=== PATIENT | female | born 1985 | race Caucasian/White ===

== ENCOUNTER 2016-10-07 06:46 | Day surgery (SDC) | payer OTHER ==
[~2016-10-07] VITALS: Ht 157.5 cm; Wt 67.8 kg
[2016-10-07 07:29] VITALS: Ht 157.5 cm; Wt 67.8 kg
[2016-10-07] MEDS ORDERED: LIDOCAINE 4% SOLUTION 50 ML BTL ONE (07:58)
[2016-10-07 08:11] VITALS: BP 107/61; PULSE 60; RESP 20
[2016-10-07] MEDS ORDERED: MIDAZOLAM 1 MG/ML 2 ML INJ ONE ×2 (08:25)
[2016-10-07] MEDS ORDERED: FENTAnyl 50 MCG/ML VIAL ONE (08:26)
[2016-10-07 08:40] VITALS: BP 95/55; PULSE 56; RESP 18
[2016-10-07 09:11] VITALS: BP 149/76; PULSE 50; RESP 18
--- NOTE | 2016-10-07 09:48 | GILP ---
DATE OF PROCEDURE: PROCEDURE: Esophagogastroduodenoscopy. PREOPERATIVE DIAGNOSIS: Patient presenting with a history of chronic heartburn, chronic dyspepsia, unresponsive to routine therapy, rule out peptic ulcer disease, gastroesophageal reflux disease. POSTOPERATIVE DIAGNOSES: 1. Mild reflux esophagitis, Chariton classification A. 2. Patchy gastritis of the stomach in a salt and pepper type of pattern. Biopsy was done to rule o ut Helicobacter pylori infection from the antrum, lesser curvature, and the fundus and cardia. DESCRIPTION OF PROCEDURE: After the informed written consent was obtained, the patient was asked to lie on the left lateral side, 3 mg of Versed and 75 mcg of fentanyl was given as intravenous anesth esia. When the patient became somnolent, the Olympus video upper endoscope was introduced into the orophar ynx, then into the esophagus. Esophagus appeared to show minimal erythema just above the GE junctio n indicating Chariton classification A of reflux esophagitis. Scope at this time was advanced in to the stomach. Stomach showed evidence of a salt and pepper type of erythema almost occupying the entire mucosal surface indicating mild gastritis. Biopsy was obtained from the antrum, the lesser c urvature, fundus, and the cardia to rule out H. pylori infection. Mucosa of the duodenum up to the end of the third portion appeared normal. The scope at this time was withdrawn. On the way out, no additional abnormalities were detected and the procedure was terminated. PLAN: Recommend omeprazole 40 mg a day for 8 weeks. Dictated By: ROSIE MOORE/LUIS FERNANDO Conf#: [id number] DID#: [id number]
== END 2016-10-07 10:40 | disposition home or self-care (01) ==
LOC: GIL 06:46
PROVIDERS: ATTEND Internal Medicine Gastroenterology
DX: K29.30 Chronic superficial gastritis without bleeding (principal); K21.0 Gastro-esophageal reflux disease with esophagitis
CPT/HCPCS: 43239; 88305; 88312; J2250; J3010; Z7610